=== PATIENT | female | born 1990 | race Two or more races ===

== ENCOUNTER → 2017-06-19 | Outpatient (CLI) | payer OTHER | END | disposition home or self-care (01) | LOC: US 14:56 | DX: R10.2 Pelvic and perineal pain (principal) | CPT/HCPCS: 76830; 76856 ==

== ENCOUNTER → 2017-08-08 | Outpatient (CLI) | payer OTHER ==
[2017-08-08 08:26] LABS: ADD MAN DIFF? NO
[2017-08-08 08:49] LABS: ALBUMIN 3.8 g/dL (3.4-5.0); ALK PHOS 71 U/L (46-116); ALT (SGPT) 19 U/L (14-59); AMYLASE 36 U/L (25-115); ANION GAP 8 (6-14); AST (SGOT) 13 U/L (15-37); BASO % 1 % (0-3); BLOOD UREA NITROGEN 14 mg/dL (7-20); BUN/CREATININE RATIO 18 (6-20); CALCIUM 9.3 mg/dL (8.5-10.1); CARBON DIOXIDE 29 mmol/L (21-32); CHLORIDE 104 mmol/L (98-107); CREATININE 0.8 mg/dL (0.6-1.0); EOS # 0.1 x10^3/uL (0.0-0.7); EOS % 1 % (0-3); GFR 84.8; GLUCOSE 102 mg/dL (70-99); HEMOGLOBIN 13.5 g/dL (12.0-15.5); LIPASE 194 U/L (73-393); LYMPH # 2.9 x10^3/uL (1.0-4.8); LYMPH % 41 % (24-48); MEAN CORPUSCULAR HEMOGLOBIN 29 pg (25-35); MEAN CORPUSCULAR HGB CONC 33 g/dL (31-37); MEAN CORPUSCULAR VOLUME 89 fL (79-100); MONO # 0.5 x10^3/uL (0.0-1.1); MONO % 7 % (0-9); NEUT # 3.7 x10^3uL (1.8-7.7); NEUT % 51 % (31-73); PLATELET COUNT 311 x10^3/uL (140-400); RED BLOOD COUNT 4.59 x10^6/uL (3.50-5.40); RED CELL DISTRIBUTION WIDTH 14.7 % (11.5-14.5); SODIUM 141 mmol/L (136-145); TOTAL BILIRUBIN 0.4 mg/dL (0.2-1.0); TOTAL PROTEIN 7.8 g/dL (6.4-8.2); WHITE BLOOD COUNT 7.2 x10^3/uL (4.0-11.0)
[2017-08-08 10:28] LABS: SEDIMENTATION RATE 24 (0-25)
[2017-08-08 14:29] LABS: HCV ANTIBODY <0.1 s/co ratio (0.0-0.9); HEP A IGM ABDY Negative (Negative); HEP B SURFACE AG Negative (Negative)
[2017-08-10 15:28] LABS: GLIA IGA 5 units (0-19); GLIA IGG 2 units (0-19); TRANSGLUTAMINASE IGA AB <2 U/mL (0-3); TRANSGLUTAMINASE IGG AB <2 U/mL (0-5)
[2017-08-13 10:14] LABS: ANA INTERP Negative (.)
== END | disposition home or self-care (01) ==
LOC: LAB 08:08
DX: E86.0 Dehydration (principal); K58.2 Mixed irritable bowel syndrome; R19.7 Diarrhea, unspecified; R10.84 Generalized abdominal pain; R21 Rash and other nonspecific skin eruption
CPT/HCPCS: 36415; 80053; 80074; 82150; 83516; 83690; 85025; 85651; 86038; 87045

== ENCOUNTER → 2017-08-21 | Outpatient (CLI) | payer OTHER | END | disposition home or self-care (01) | LOC: ECHO 07:47 | DX: I34.0 Nonrheumatic mitral (valve) insufficiency (principal) | CPT/HCPCS: 93306 ==

== ENCOUNTER 2017-10-12 20:28 | Emergency (ER) | payer OTHER ==
[2017-10-12] MEDS: IV NORMAL SALINE 1000ML BAG 1,000 ML IV (21:45)
[2017-10-12] MEDS: METOCLOPRAMIDE HCL 10 MG/2 ML VIAL. IV (21:54)
[2017-10-12] MEDS: KETOROLAC 30 MG/ML INJ. IV (21:55)
[2017-10-12] MEDS: diphenhydrAMINE 50 MG/ML VIAL IVP (21:55)
== END 2017-10-12 22:28 | disposition home or self-care (01) ==
LOC: ER 20:28
DX: G43.909 Migraine, unspecified, not intractable, without status migrainosus (principal); Z88.0 Allergy status to penicillin
CPT/HCPCS: 96374; 96375; 99284-25; J1200; J1885; J2765; J7030

== ENCOUNTER → 2018-01-04 | Outpatient (CLI) | payer OTHER ==
[2017-10-12 22:20] VITALS: BP 109/64
[~2018-01-04] MED LIST: METO10TA81 PO
[2018-01-05 06:18] LABS: RUBELLA IGG ANTIBODY 2.94 index (Immune >0.99)
== END | disposition home or self-care (01) ==
LOC: LAB 06:56
PROVIDERS: ATTEND Obstetrics & Gynecology Reproductive Endocrinology
DX: Z01.83 Encounter for blood typing (principal); Z11.59 Encounter for screening for other viral diseases; N96 Recurrent pregnancy loss; G43.909 Migraine, unspecified, not intractable, without status migrainosus
CPT/HCPCS: 82306; 86592; 86703; 86704; 86762; 86787; 86803; 86850; 86900; 86901; 87340

== ENCOUNTER → 2018-09-04 | Outpatient (CLI) | payer OTHER ==
[2017-10-12 22:20] VITALS: BP 109/64
[~2018-09-04] MED LIST changes: +ACET500T68 PO; +HYDR-3164 PO; +IBUP-1027 PO; +VENTOLIN HFA18 GM INH
--- NOTE | 2018-09-04 11:33 | RAD ---
Abdominal ultrasound complete HISTORY: Right upper quadrant pain for 2 days FINDINGS: Pancreas demonstrates no evidence of abnormality. Liver is not enlarged. Inferior vena cava is documented. Aorta is nonaneurysmal. Large gallstone is identified measuring at least 2.4 cm. No evidence of gallbladder wall thickening. There is a positive sonographic Cervantes sign. No significant biliary ductal dilatation. Right kidney measures 9.1 cm without hydronephrosis. Left kidney is difficult to visualize, limiting evaluation, measures about 10.1 cm longitudinal without hydronephrosis. Spleen is not enlarged. IMPRESSION: Cholelithiasis. Positive sonographic Cervantes sign can indicate cholecystitis. Electronically signed by: Emanuel Zuleta MD (09/04/2018 11:30 AM) [facility]
--- NOTE | 2018-09-04 11:38 | RAD ---
PELVIS COMPLETE Clinical Indication: RLQ pelvic pain Comparison: Complete pelvic ultrasound, 06/19/2017. Technique: Real-time ultrasound imaging of the pelvis using transabdominal window is performed. Patient declined transvaginal scanning. Findings: Uterus measures 9.7 x 4.7 x 2.8 cm. No focal myometrial abnormality. The endometrial stripe is normal measuring 1 mm. No pelvic free fluid. No evidence of adnexal mass. The ovaries are symmetric in size and demonstrate normal blood flow. IMPRESSION: Normal transabdominal pelvic ultrasound. Electronically signed by: Kenroy Galvan MD (09/04/2018 11:35 AM) [id number]
== END | disposition home or self-care (01) ==
LOC: US 10:11
PROVIDERS: ATTEND Nurse Practitioner
DX: K80.10 Calculus of gallbladder with chronic cholecystitis without obstruction (principal)
CPT/HCPCS: 76700; 76856

== ENCOUNTER 2018-09-05 14:12 | Day surgery (SDC) | payer OTHER ==
[~2018-09-05] VITALS: Ht 152.4 cm; Wt 56.7 kg
[~2018-09-05 14:12] MED LIST changes: -HYDR-3164 PO
--- NOTE | 2018-09-05 14:48 | PDOC ---
SURGICAL PROGRESS NOTE Subjective 28 yo F with symptomatic cholelithiasis. TO OR for laparoscopic cholecystectomy with cholangiogram. R/R/B/A d/w pt. Office note H&P reviewed and unchanged. JULIO CÉSAR EWING MD Sep 05, 2018 14:47
[2018-09-05] MEDS ORDERED: BUPIVAC MPF-EPI 0.5%-1:200000 30 ML VIAL. ONE (14:57)
[2018-09-05] MEDS ORDERED: BISACODYL 10 MG SUPP.RECT. ONE (14:58)
[2018-09-05] MEDS ORDERED: IOHEXOL 300 MG/ML 100ML VIAL. ONE (14:58)
[2018-09-05] MEDS ORDERED: SURGICEL HEMOSTAT 2X3 EACH. ONE (14:58)
[2018-09-05 15:14] LABS: U PREG PATIENT NEGATIVE (NEG)
[2018-09-05 15:14] LABS: BASO # 0.1 x10^3/uL (0.0-0.2); BASO % 1 % (0-3); EOS % 1 % (0-3); HEMATOCRIT 39.9 % (36.0-47.0); HEMOGLOBIN 13.3 g/dL (12.0-15.5); LYMPH # 3.1 x10^3/uL (1.0-4.8); LYMPH % 37 % (24-48); MEAN CORPUSCULAR HEMOGLOBIN 30 pg (25-35); MEAN CORPUSCULAR HGB CONC 33 g/dL (31-37); MEAN CORPUSCULAR VOLUME 89 fL (79-100); MONO # 0.5 x10^3/uL (0.0-1.1); MONO % 6 % (0-9); NEUT # 4.7 x10^3uL (1.8-7.7); NEUT % 56 % (31-73); PLATELET COUNT 286 x10^3/uL (140-400); RED BLOOD COUNT 4.46 x10^6/uL (3.50-5.40); RED CELL DISTRIBUTION WIDTH 14.9 % (11.5-14.5); WHITE BLOOD COUNT 8.4 x10^3/uL (4.0-11.0)
[2018-09-05] MEDS ORDERED: IV RINGERS,LACTATED 1000ML 1,000 ML IV SCH ×2 (15:15→19:48)
[2018-09-05] MEDS ORDERED: LIDOCAINE 2% PF 5 ML VIAL. ONE (15:26)
[2018-09-05] MEDS ORDERED: ROCURONIUM 100 MG/10 ML VIAL. ONE (15:26)
[2018-09-05] MEDS ORDERED: fentaNYL PF VIAL 100 MCG/2 ML VIAL ONE ×2 (15:26→19:39)
[2018-09-05] MEDS ORDERED: PROPOFOL 20 ML IV ONE (15:26)
[2018-09-05] MEDS ORDERED: MIDAZOLAM HCL/PF 2 MG/2 ML VIAL. ONE (15:27)
[2018-09-05 15:30] LABS: CALCIUM 9.1 mg/dL (8.5-10.1); CREATININE 0.8 mg/dL (0.6-1.0); GFR 84.2; POTASSIUM 3.4 mmol/L (3.5-5.1)
[2018-09-05 15:35] LABS: ALBUMIN 3.9 g/dL (3.4-5.0); TOTAL BILIRUBIN 0.2 mg/dL (0.2-1.0)
--- NOTE | 2018-09-05 15:40 | NUR ---
PT HERE FOR CHOLECYSTECTOMY. HAS ANAPHYLAXIS ALLERGY TO PCN AND ANCEF [address] EWING'S OFFICE. DR EWING PAGED AND STATED ANCEF 2 GRAMS WAS OK. AWARE OF PCN ALLERGY AND REACTION.
[2018-09-05] MEDS ORDERED: HEPARIN 1,000 UNIT in IV NORMAL SALINE 1,000 ML for SURG PERIOP IRR ONE (16:01)
[2018-09-05] MEDS ORDERED: DEXAMETHASONE SOD PHOS 4 MG/ML VIAL ONE (17:12)
--- NOTE | 2018-09-05 17:53 | PDOC ---
Provider Note Provider Note SURG Talked with Alyssa and her in the pre op area explained risks including but not limited to bleeding, infection, injury to bowel, liver or bile duct with need for further surgery later possible open procedure or diarrhea post op She understands and will proceed COMFORT AGUERO MD Sep 05, 2018 17:53
[2018-09-05] MEDS ORDERED: DESFLURANE 31 TO 60 MINUTES IH ONE (18:17)
[2018-09-05] MEDS ORDERED: ONDANSETRON PF 4 MG/2 ML VIAL. ONE (18:31)
[2018-09-05] MEDS ORDERED: NEOSTIGMINE 10 MG/10 ML VIAL. ONE (18:32)
[2018-09-05] MEDS ORDERED: GLYCOPYRROLATE 1 MG/5 ML VIAL. ONE (18:32)
--- NOTE | 2018-09-05 19:02 | RAD ---
Interoperative Cholangiogram: Technique: Contrast is introduced into the cystic duct during the performance of a laparoscopic cholecystectomy and spot views were obtained on a portable C-arm for an intraoperative cholangiogram. Total Fluoro Time: 27.7s. Findings: The majority of the biliary tree is visualized and appears normal. No filling defects are seen. Contrast is seen in the duodenum. Impression: No evidence of a retained stone. Electronically signed by: Sylvester Keller III, MD (09/05/2018 6:59 PM) [facility]
--- NOTE | 2018-09-05 19:07 | DISCH ---
DISCHARGE INSTRUCTIONS Condition on Discharge Condition on Discharge: Stable Activity After Discharge Activity Instructions for Disc: Activity as tolerated, Avoid exertion Driving Instructions after Dis: Do not drive (2-3 days) Diet after Discharge Diet after Discharge: Regular Wound Incision Care Wound/Incision Care: Ice to area for comfort Other wound/incision instructi: september shower Sunday Follow-Up Follow up with: Bob ten days COMFORT AGUERO MD Sep 05, 2018 19:07
--- NOTE | 2018-09-05 19:11 | PDOC ---
BRIEF OPERATIVE NOTE Date: Sep 05, 2018 Pre-Op Diagnosis symptomatic cholelithiasis Post-Op Diagnosis same Procedure Performed l/s cholecystectomy with cholangiograms Surgeon Bob Senior Buyer Annika MEEKS Anesthesia Type: General Blood Loss 10cc IV Fluid 1000cc Specimens Obtained GB Findings supple GB, normal grams Complications none COMFORT AGUERO MD Sep 05, 2018 19:11
[2018-09-05] MEDS ORDERED: fentaNYL PF VIAL 100 MCG/2 ML VIAL IV PRN ×2 (20:00)
[2018-09-05] MEDS ORDERED: MORPHINE SULFATE 2 MG/ML VIAL. IV PRN (20:00)
[2018-09-05] MEDS ORDERED: ONDANSETRON PF 4 MG/2 ML VIAL. IV PRN (20:00)
[2018-09-05] MEDS ORDERED: HYDROmorphone 2 MG/ML VIAL IV PRN (20:00)
[2018-09-05] MEDS ORDERED: PROCHLORPERAZINE 10 MG/2 ML VIAL. IV PRN (20:00)
[2018-09-05] MEDS ORDERED: HYDROcodone/APAP 5/325MG 1 TAB TABLET PO ONE (20:15)
[2018-09-05] MEDS ORDERED: HYDR-3164 PO (20:16)
[2018-09-05 20:38] VITALS: BP 112/74
--- NOTE | 2018-09-05 21:23 | OP ---
DATE OF SURGERY: 09/05/2018 PREOPERATIVE DIAGNOSIS: Symptomatic cholelithiasis. POSTOPERATIVE DIAGNOSIS: Symptomatic cholelithiasis. PROCEDURE: Laparoscopic cholecystectomy with cholangiogram. SURGEON: Comfort Aguero MD CLOTHING SORTER: JEANNA Cota ANESTHESIA: General endotracheal. ESTIMATED BLOOD LOSS: 10 mL. INTRAVENOUS FLUIDS: 1 liter. INDICATIONS: The patient is a 28-year-old with right upper quadrant pain and an ultrasound showing stones, brought for cholecystectomy. OPERATIVE FINDINGS: The liver was smooth and sharp. The gallbladder was supple. Cholangiograms were normal. Visual inspection of the remainder of the abdomen failed to reveal obvious abnormalities. OPERATIVE REPORT: The patient was brought to the operating suite, given a general endotracheal anesthetic and the abdomen prepped and draped in the usual sterile fashion. An infraumbilical incision was infiltrated with local anesthetic, incised and a 5 mm Visiport used to safely gain access into the abdominal cavity, taking care to avoid injury to the abdominal contents. Pneumoperitoneum established. Camera inserted. Inspection carried out with results as noted above. With the table in reverse Trendelenburg rolled to the left, the epigastric, midclavicular, and lateral ports were placed under direct vision. The gallbladder was retracted superolaterally and the cystic duct and cystic artery were identified. The duct was clipped on the gallbladder side. Cholangiograms were made. These showed filling of the distal common duct and partial filling of the proximal ducts. In light of this, the catheter was removed. The cystic duct was clipped x 3 and divided, taking care to avoid injury or compromise of the common duct. The cystic artery was clipped and divided and gallbladder freed from the bed and placed in an EndoCatch bag. Good hemostasis in the fossa with no evidence of bile leak. Table returned to the level. Gallbladder delivered through the epigastric incision. Epigastric incision was closed with 0 Vicryl suture. At 6 cm intra-abdominal pressure, no bleeding from the epigastric closure or from the midclavicular port site after its removal or from the alligator grasper laterally. Abdomen decompressed, camera slowly removed, no bleeding seen. Skin incisions closed with subcuticular 4-0 Monocryl. Steri-Strips and sterile dressings applied. The patient awakened from her anesthetic and taken to the recovery room in satisfactory condition. COMFORT AGUERO MD DR: Marybeth JOB#: [id number] / [id number]
--- NOTE | 2018-09-09 15:06 | PATHOLOGY ---
[facility] Accession Number: [id number] . 01 Material submitted: . gallbladder - GALLBLADDER AND CONTENTS . 01 Clinician provided ICD-10: n . 01 Clinical history: . Symptomatic cholelithiasis . 02 Diagnosis: Gallbladder, laparoscopic cholecystectomy: - Cholelithiasis. - Cholesterolosis. - Chronic cholecystitis. - Reactive changes of gallbladder neck lymph node. (JPM:surgical supply assistant; 09/09/2018) [facility]/09/09/2018 . 02 Comment: There is no evidence of malignancy. (JPM:dasia; 09/09/2018) . 02 Electronically signed: . Keron Jansen MD, Pathologist NPI- [id number] . 01 Gross description: . The specimen is received in formalin labeled "Gutierrez Alyssa, gallbladder and contents " and consists of an intact, green, shiny gallbladder measuring 8.4 in length and up to 3.0 in diameter. The margin is inked black. Opening reveals a lumen filled with tenacious green bile and a single oval and smooth green-yellow calculus measuring 2.5 x 2.2 cm. The mucosa is green with yellow streaks with an average wall thickness of 0.1 cm. No masses are identified. Located adjacent to the gallbladder neck is a lymph node candidate measuring 0.8 x 0.6 x 0.3 cm. Archival Studies Professor sections are submitted in A1. (MAYAY; 09/06/2018) SYU/SYU . 02 Pathologist provided ICD-10: K80.10 . 02 CPT . 335919 Specimen Comment: A courtesy copy of this report has been sent to Specimen Comment: [phone]. Specimen Comment: Report sent to Performed at: [address] [place] [address] [address], [place], [place] [id number] MD Flako Hdz MD Phone: [phone] Performed at: [address] [id number] MD Keron Jansen MD Phone: [phone]
== END 2018-09-05 20:38 | disposition home or self-care (01) ==
LOC: SURG 14:12
PROVIDERS: ATTEND Surgery
DX: K80.10 Calculus of gallbladder with chronic cholecystitis without obstruction (principal); Z88.0 Allergy status to penicillin; Z98.890 Other specified postprocedural states; Z72.89 Other problems related to lifestyle
CPT/HCPCS: 36415; 47563; 74300; 80048; 81025; 82040; 82247; 85025; A7015; J1100; J1956; J2001; J2405; J2704; J2710; J3010; J3490; J7120; Q9967; 88304; J1644; J2250; J7030

== ENCOUNTER → 2019-06-24 | Outpatient (CLI) | payer OTHER ==
[~2019-06-24] MED LIST changes: +HYDR-3164 PO
[2019-06-24 10:14] LABS: BASO % 1 % (0-3); EOS # 0.1 x10^3/uL (0.0-0.7); EOS % 1 % (0-3); HEMATOCRIT 41.1 % (36.0-47.0); HEMOGLOBIN 13.8 g/dL (12.0-15.5); LYMPH # 3.2 x10^3/uL (1.0-4.8); LYMPH % 43 % (24-48); MEAN CORPUSCULAR HEMOGLOBIN 30 pg (25-35); MEAN CORPUSCULAR HGB CONC 34 g/dL (31-37); MEAN CORPUSCULAR VOLUME 89 fL (79-100); MONO # 0.6 x10^3/uL (0.0-1.1); MONO % 8 % (0-9); NEUT # 3.6 x10^3/uL (1.8-7.7); NEUT % 48 % (31-73); PLATELET COUNT 307 x10^3/uL (140-400); RED BLOOD COUNT 4.62 x10^6/uL (3.50-5.40); RED CELL DISTRIBUTION WIDTH 14.8 % (11.5-14.5); WHITE BLOOD COUNT 7.5 x10^3/uL (4.0-11.0)
[2019-06-24 10:15] LABS: ALBUMIN/GLOBULIN RATIO 1.1 (1.0-1.7); CALCIUM 9.2 mg/dL (8.5-10.1); CREATININE 0.7 mg/dL (0.6-1.0); GFR 97.6; POTASSIUM 4.1 mmol/L (3.5-5.1); TOTAL BILIRUBIN 0.2 mg/dL (0.2-1.0); TOTAL PROTEIN 7.8 g/dL (6.4-8.2)
== END | disposition home or self-care (01) ==
LOC: LAB 09:17
PROVIDERS: ATTEND Nurse Practitioner
DX: R19.7 Diarrhea, unspecified (principal); Z79.899 Other long term (current) drug therapy
CPT/HCPCS: 36415; 80053; 82306; 82607; 83540; 84443; 85025